=== PATIENT | female | born 1945 | race African-American/Black ===

== ENCOUNTER 2018-05-25 02:11 | Emergency (ER) | payer MEDICARE ==
[~2018-05-25] VITALS: Ht 172.7 cm; Wt 89.3 kg
[~2018-05-25 02:11] MED LIST: CEPH-264 PO; LABE200T4 PO; LISI-334 PO; LOSA50TA2 PO; METF500T9 PO; METO25TA4 PO; labetalol; lisinopril; metformin
[2018-05-25] MEDS ORDERED: LIDO:MAALOX 1:1 20 ML SINGLE DOSE. PO ONE (02:45)
--- NOTE | 2018-05-25 02:49 | PHYS DOC ---
Past History Past Medical History: Diabetes, Hypertension Past Surgical History: No Surgical History Smoking: Greater than 1 pack/day Alcohol Use: None Drug Use: None Adult General Chief Complaint Chief Complaint: GI PROBLEM HPI HPI 72-year-old female presents with feeling of something in her throat. Patient states that she feels like there might be something caught in her throat. She also states that if she could belch it might get better. This feeling started a few hours ago. She does not remember swallowing anything unusual. She states that she is able to eat and drink, but it feels like it gets caught on the way down. She does not have a recent history of GERD. She had this feeling once before several years ago and does not remember why it resolved. Her previous episode involved a lot of pain and this is not painful today. She denies fever or chills. Review of Systems Review of Systems Constitutional: Denies fever or chills [] Eyes: Denies change in visual acuity, redness, or eye pain [] HENT: Denies nasal congestion or sore throat [] Respiratory: Denies cough or shortness of breath [] Cardiovascular: No additional information not addressed in HPI [] GI: Globus sensation in her throat[] : Denies dysuria or hematuria [] Musculoskeletal: Denies back pain or joint pain [] Integument: Denies rash or skin lesions [] Neurologic: Denies headache, focal weakness or sensory changes [] Endocrine: Denies polyuria or polydipsia [] All other systems were reviewed and found to be within normal limits, except as documented in this note. Allergies Allergies Allergies Coded Allergies Type Severity Reaction Last Updated Verified No Known Drug Allergies 01/20/16 No Physical Exam Physical Exam Constitutional: Well developed, well nourished, no acute distress, non-toxic appearance. [] HENT: Normocephalic, atraumatic, bilateral external ears normal, oropharynx moist, no oral exudates, nose normal. [] Eyes: PERRLA, EOMI, conjunctiva normal, no discharge. [] Neck: Normal range of motion, no tenderness, supple, no stridor. [] Cardiovascular:Heart rate regular rhythm, no murmur [] Lungs & Thorax: Decreased breath sounds bilaterally[] Abdomen: Bowel sounds normal, soft, no tenderness, no masses, no pulsatile masses. [] Skin: Warm, dry, no erythema, no rash. [] Back: No tenderness, no CVA tenderness. [] Extremities: No tenderness, no cyanosis, no clubbing, ROM intact, no edema. [] Neurologic: Alert and oriented X 3, normal motor function, normal sensory function, no focal deficits noted. [] Psychologic: Affect normal, judgement normal, mood normal. [] EKG EKG [] Radiology/Procedures Radiology/Procedures [] Impressions: Pulmonary: No obvious foreign body in esophagus. There is a round radiopaque area and the anterior neck. This appears to be a calcification anterior to the trachea. I do not have access to previous imaging for comparison. Course & Med Decision Making Course & Med Decision Making Pertinent Labs and Imaging studies reviewed. (See chart for details) The patient's x-ray did show a round partially radiopaque area in the anterior neck. This appears to be soft tissue anterior to the trachea. This is likely a calcification. I have requested radiology over read, but they have not read the x-ray for over an hour. The patient is feeling better at this time after the GI cocktail. She feels like she is ready to go home. If the radiologist determines her films are concerning, we will inform the patient at that time. She is stable for discharge. [] Dragon Disclaimer Dragon Disclaimer This electronic medical record was generated, in whole or in part, using a voice recognition dictation system. Departure Departure: Referrals: KATARZYNA COX (PCP) SALVADOR GALARZA DO May 25, 2018 02:49
[2018-05-25] MEDS ORDERED: LIDO:MAALOX 1:1 20 ML SINGLE DOSE. ONE (03:01)
--- NOTE | 2018-05-25 04:04 | RAD ---
Soft tissue neck 3 views: Reason for examination: Feels like something is stuck in throat. Evaluate for food bolus. The vertebral bodies of the cervical spine are normally aligned anteriorly and posteriorly. No acute fracture or subluxation is seen. There are some degenerative changes at the C5-6 disc level with moderate narrowing at the disc space. Remaining intervertebral discs are fairly well-maintained. No abnormality seen at the epiglottis. The airway is patent with no stenosis. No radiopaque foreign bodies identified. IMPRESSION: Degenerative changes in the spine at the C5-6 disc level. No radiopaque foreign body identified. Electronically signed by: Carmen Gray MD (05/25/2018 4:00 AM) [facility]
[2018-05-25 04:05] VITALS: BP 151/79
== END 2018-05-25 04:08 | disposition home or self-care (01) ==
LOC: ER 02:11
DX: M47.892 Other spondylosis, cervical region (principal); E11.9 Type 2 diabetes mellitus without complications; I10 Essential (primary) hypertension; K21.9 Gastro-esophageal reflux disease without esophagitis; F17.200 Nicotine dependence, unspecified, uncomplicated
CPT/HCPCS: 70360; 99284

== ENCOUNTER 2019-11-23 19:33 | Emergency (ER) | payer MEDICARE, BC ==
[~2019-11-23] VITALS: Ht 172.7 cm; Wt 89.3 kg
[~2019-11-23 19:33] MED LIST changes: -LOSA50TA2 PO; +LOSA50TA86 PO; +METF500T11 PO; -METF500T9 PO
--- NOTE | 2019-11-23 23:14 | RAD ---
Study: ANKLE LEFT 3V Indication: Injury. Comparison: None. Findings: Cortical irregularity at the tip of the lateral malleolus only seen on the AP view is concerning for a nondisplaced fracture especially given the presence of lateral ankle swelling and a probable ankle joint effusion. The ankle mortise is symmetric. No acute fracture of the partially evaluated foot. Impression: Probable nondisplaced Foreman type A distal fibula fracture without ankle malalignment. Electronically signed by: MADINA DAWKINS MD (11/23/2019 11:12 PM) [facility]
--- NOTE | 2019-11-24 06:25 | PHYS DOC ---
Past History Past Medical History: Asthma, Diabetes, Hypertension, Stroke Past Surgical History: Hysterectomy Smoking: Greater than 1 pack/day Alcohol Use: None Drug Use: None Adult General Chief Complaint Chief Complaint: ANKLE PROBLEM HPI HPI Patient is a 74-year-old -[place] female who presents with persistent left lateral ankle pain times several hours after twisting foot in a pot hole earlier this evening. She reports hearing cracking sensation at the time of injury. Reports persistent pain with tenderness to palpation. No Other acute symptoms or complaints [] Review of Systems Review of Systems Review symptoms as per history of present illness All other systems were reviewed and found to be within normal limits, except as documented in this note. Allergies Allergies Allergies Coded Allergies Type Severity Reaction Last Updated Verified No Known Drug Allergies 01/20/16 No Physical Exam Physical Exam Constitutional: Well developed, well nourished, no acute distress, non-toxic appearance. [] HENT: Normocephalic, atraumatic, bilateral external ears normal, oropharynx moist, no oral exudates, nose normal. [] Extremities: Lateral malleolar tenderness, swelling, no deformities appreciated.. [] Neurologic: Alert and oriented X 3, normal motor function, normal sensory function, no focal deficits noted. [] Psychologic: Affect normal, judgement normal, mood normal. [] Current Patient Data Vital Signs Vital Signs Date Time Temp Pulse Resp B/P (MAP) Pulse Ox O2 Delivery O2 Flow Rate FiO2 11/23/19 20:40 97.4 75 18 97 Room Air EKG EKG [] Radiology/Procedures Radiology/Procedures [Left ankle x-ray, lateral malleolar fracture] Course & Med Decision Making Course & Med Decision Making Pertinent Labs and Imaging studies reviewed. (See chart for details) [Patient splinted and given crutches. Orthopedic follow-up recommended] Dragon Disclaimer Dragon Disclaimer This electronic medical record was generated, in whole or in part, using a voice recognition dictation system. Departure Departure: Impression: Primary Impression: Ankle fracture, left Disposition: 01 HOME, SELF-CARE Condition: STABLE Referrals: ELLIS VASQUEZ MD Patient Instructions: Ankle Fracture, [id number] Additional Instructions: Please wear splint, use crutches and an avoid direct weightbearing. Take ibuprofen or Tylenol for pain and follow-up with local orthopedic physician in the next 3-5 days for further treatment. SALVADOR HUSSEIN DO Nov 24, 2019 06:25
== END 2019-11-23 22:20 | disposition home or self-care (01) ==
LOC: ER 19:33
DX: S82.892A Other fracture of left lower leg, initial encounter for closed fracture (principal); J45.909 Unspecified asthma, uncomplicated; E11.9 Type 2 diabetes mellitus without complications; I10 Essential (primary) hypertension; Z86.73 Personal history of transient ischemic attack (TIA), and cerebral infarction without residual deficits; F17.200 Nicotine dependence, unspecified, uncomplicated; X50.1XXA Overexertion from prolonged static or awkward postures, initial encounter; Y93.89 Activity, other specified; Y92.89 Other specified places as the place of occurrence of the external cause; Y99.8 Other external cause status
CPT/HCPCS: 29515; 73610; 99284

== ENCOUNTER → 2020-02-03 | Outpatient (CLI) | payer MEDICARE, BC ==
[2019-11-23 20:40] VITALS: BP 170/80
--- NOTE | 2020-02-04 08:47 | RAD ---
Two view bilateral hand radiographs 02/03/2020 Clinical history: Bilateral hand pain. PA and lateral digital radiographs of both hands were obtained. A healed fracture of the distal right radial metaphysis is noted. There is diffuse osteopenia of the visualized bony structures. No acute fracture or dislocation of either wrist is seen. Degenerative changes are seen scattered throughout the interphalangeal joints of both hands. These consist of joint compartment narrowing, subchondral sclerosis and associated osteophyte formation. Mild to moderate degenerative changes are seen involving the first MCP joints bilaterally. No erosion or subluxation is seen. IMPRESSION: Degenerative changes are seen involving both hands as discussed above. No acute osseous abnormality is seen. Electronically signed by: Jenaro Mauricio MD (02/04/2020 8:44 AM) [facility] [place]
== END | disposition home or self-care (01) ==
LOC: PMG 15:08
PROVIDERS: ATTEND Physician Assistant
DX: M19.042 Primary osteoarthritis, left hand (principal); M19.041 Primary osteoarthritis, right hand; M85.88 Other specified disorders of bone density and structure, other site
CPT/HCPCS: 73120

== ENCOUNTER → 2020-09-09 | Outpatient (CLI) | payer MEDICARE, BC ==
[2019-11-23 20:40] VITALS: BP 170/80
[~2020-09-09] MED LIST changes: +METF-658 PO; -METF500T11 PO
--- NOTE | 2020-09-09 12:20 | RAD ---
3 views left elbow without comparison for elbow pain. FINDINGS: There is no fracture, dislocation, or acute osseous abnormality identified. No significant degenerative changes are seen. There is soft tissue swelling over the olecranon which may reflect olecranon bursitis and/or edema. IMPRESSION: 1. No acute osseous abnormality. 2. Soft tissue swelling over the olecranon, likely due to olecranon bursitis and/or localized subcutaneous edema. Electronically signed by: Boo Coleman MD (09/09/2020 12:17 PM) [id number]
== END ==
LOC: DXRAD 10:13
PROVIDERS: ATTEND Physician Assistant
DX: M25.412 Effusion, left shoulder (principal); M25.522 Pain in left elbow
CPT/HCPCS: 73080

== ENCOUNTER → 2020-11-16 | Outpatient (CLI) | payer MEDICARE, BC ==
[2019-11-23 20:40] VITALS: BP 170/80
--- NOTE | 2020-11-17 00:59 | RAD ---
Three-view left shoulder dated 11/16/2020. No comparison available. Clinical data indication: Pain. FINDINGS: 3 views left shoulder show normal bony alignment. No displaced fracture. No acute osseous or articula r abnormality. Mild hypertrophic change of the AC joint. No periostitis or bone destruction. IMPRESSION: No acute radiographic abnormality. Electronically signed by: Konstantin Wei MD (11/17/2020 12:57 AM) [facility]
== END ==
LOC: PMG 15:30
PROVIDERS: ATTEND Physician Assistant
DX: M19.012 Primary osteoarthritis, left shoulder (principal)
CPT/HCPCS: 73030

== ENCOUNTER 2021-11-20 04:09 | Emergency (ER) | payer MEDICARE, BC ==
[~2021-11-20] VITALS: Ht 172.7 cm; Wt 90.9 kg
[~2021-11-20 04:09] MED LIST changes: -LISI-334 PO; +LISI20TA18 PO
--- NOTE | 2021-11-20 04:21 | PHYS DOC ---
Past History Past Medical History: Anxiety, Arthritis, Asthma, Bronchitis, CAD, CHF, CVA, Diabetes, Hypertension, Stroke (JAZMÍN ESCOBAR MD) Past Surgical History: Hysterectomy (JAZMÍN ESCOBAR MD) Smoking: Greater than 1 pack/day Alcohol Use: None Drug Use: None (JAZMÍN ESCOBAR MD) General Adult EDM: Chief Complaint: DYSPNEA/RESPIRATOY DISTRESS HPI: HPI: ".. I ve been short of breath... "." Some chest discomfort this morning.. ".. " I should n't have the COVID.. I got my shots.. but I much more short of breath.. today..".. " It amy started on .. " Patient is a 76 year old female who presents with above history and complaints of increased dyspnea, chest discomfort since . Patient does states she did not take her blood pressure meds on or the last 24 hours. Patient does smoke and vape. Patient does have a history of diabetes and TIAs and CVAs., COPD, GERD, patient states her last stroke was in . Patient currently follows with Dr. Del Rio, and and [facility] for care. Patient states she has never had a myocardial infarction. No history of recent travel. No specific ill contacts. No history of trauma. No change in her meds., But was noncompliant over holiday. Patient has past surgical history of total hysterectomy, and oophorectomy, left breast lumpectomy and colonoscopy evaluations. (JAZMÍN ESCOBAR MD) Review of Systems: Review of Systems: Constitutional: Denies fever or chills Eyes: Denies change in visual acuity HENT: Denies nasal congestion or sore throat Respiratory: Complaints of shortness of breath Cardiovascular: Complains of chest discomfort GI: Denies abdominal pain, nausea, vomiting, bloody stools or diarrhea : Denies dysuria Musculoskeletal: Denies back pain or joint pain Integument: Denies rash Neurologic: Denies headache, focal weakness or sensory changes Endocrine: Denies polyuria or polydipsia Lymphatic: Denies swollen glands Psychiatric: Denies depression or anxiety (JAZMÍN ESCOBAR MD) Family History: Family History: Noncontributory to presentation (JAZMÍN ESCOBAR MD) Current Medications: Current Meds: See nursing for home meds (JAZMÍN ESCOBAR MD) Allergies: Allergies: Allergies Coded Allergies Type Severity Reaction Last Updated Verified No Known Drug Allergies 01/20/16 No (JAZMÍN ESCOBAR MD) Physical Exam: PE: Constitutional: Moderate acute distress, non-toxic appearance. [] HENT: Normocephalic, atraumatic, bilateral external ears normal, oropharynx moist, no oral exudates, nose normal. [] Eyes: PERRLA, EOMI, conjunctiva normal, no discharge. [] Neck: Normal range of motion, no tenderness, supple, no stridor. [] JVD in the sitting position Cardiovascular: Tachycardia heart rate regular rhythm, PMI to the left. Bedside monitor shows a interventricular block.. Lungs & Thorax: Bilateral breath sounds equal apex with scattered wheezes and basilar crackles on auscultation [] Abdomen: Bowel sounds decreased, soft, no tenderness, no masses, no pulsatile masses. Old surgery scar. Skin: Warm, diaphoretic, no erythema, no rash. [] Back: No tenderness, no CVA tenderness. [] Extremities: No tenderness, no cyanosis, no clubbing, ROM intact, bilateral ankle edema. [] Neurologic: Alert and oriented X 3, n moves all extremities on request, does have distal sensory, no focal deficits noted. [] Psychologic: Affect anxious , judgement normal, mood normal. [] (JAZMÍN ESCOBAR MD) EKG: EKG: My interpretation EKG shows a sinus rhythm at 90 bpm. Does have an interventricular block and ST elevations in the V leads I through 5. Strain pattern anterior septal region. Abnormal EKG. Time of this EKG is 451 hours . This EKG was sent to Dr. Luke for his review [phone] [] (JAZMÍN ESCOBAR MD) Radiology/Procedures: Radiology/Procedures: [][address] [address] IMAGING REPORT Signed PATIENT: CYNDI WHITE MACCOUNT: [id number] : 1945 LOCATION: ER AGE: 76 SEX: F EXAM STATUS: REG ER ORD. PHYSICIAN: JAZMÍN ESCOBAR MD REASON: dyspnea PROCEDURE: PORTABLE CHEST 1V AP chest x-ray HISTORY: Dyspnea. FINDINGS: There is moderate cardiomegaly. Aortic arch calcified plaque. Pulmonary vascular prominence likely represents vascular congestion. Pulmonary interstitial infiltrates likely edema. No pneumothorax. No pleural effusions evident. IMPRESSION: Congestive heart failure with cardiomegaly, pulmonary vascular congestion and pulmonary interstitial edema. Electronically signed by: Danielle Alvarado MD (11/20/2021 5:11 AM) [facility] [place] DICTATED AND SIGNED BY: DANIELLE ALVARADO MD DATE: 11/20/21509 CC: JAZMÍN ESCOBAR MD; KATARZYNA COX ~MTH0 0 (JAZMÍN ESCOBAR MD) Heart Score: C/O Chest Pain: Yes HEART Score for Chest Pain: HEART Score for Chest Pain Response (Comments) Value History Highly Suspicious [address] Depression 2 Age > 65 2 Risk Factors >3 Risk Factors or Hx CAD 2 Troponin >3 x Normal Limit 2 Total 10 Risk Factors: Risk Factors: DM, Current or recent (<one month) smoker, HTN, HLP, family history of CAD, obesity. Risk Scores: Score 0 - 3: 2.5% MACE over next 6 weeks - Discharge Home Score 4 - 6: 20.3% MACE over next 6 weeks - Admit for Clinical Observation Score 7 - 10: 72.7% MACE over next 6 weeks - Early Invasive Strategies (JAZMÍN ESCOBAR MD) Course & Med Decision Making: Course & Med Decision Making Pertinent Labs and Imaging studies reviewed. (See chart for details) Discussed presentation, testing and tx. Plan with Dr. Luke- advised does not appear to be acute STEMI continue serial enzymes and EKGs. Discussed presentation, testing and treatment plan with Dr. Severo Navarrete-advised he would be happy to admit patient however no beds in the hospital.- Nursing Shortage. Recommended ED hold or transfer and obtaining cardiology consult in ED. Impression: 1. Chest Pain 2. + Trop. at 50 3. Accelerated HTN ( Did not take BPmeds in last 24 hrs.) 4. Elevated D-dimer 2.06 5. DM -156 glucose 6. Vapes 7. Hx. CVA 1980's 8. CHF-diastolic dysfunction BNP 6,701 9. Elevated CK= 239 Critical Care- 60 mins. Multiple calls, meds and orders-for acute IL [Pt. endorsed to Dr. Young at shift change. (JAZMÍN ESCOBAR MD) Course & Med Decision Making I assumed care of patient after comprehensive signout from off going physician. Patient already accepted for admission under the care of Dr. Navarrete at [facility] Unremarkable ER visit during my shift. Patient was actually seen and rounded on by Dr. Luke, attending stone rougher who ultimately recommended hospital transfer to [facility] for nonemergent heart cath to be formed tomorrow I contacted hospitalist, Dr. Anthony at [facility] and reviewed discussion and recommendations from Dr. Luke, patient accepted under the care of Dr. Anthony Patient updated on need for hospital transfer and agreed to plan of care as stated. Remained asymptomatic and hemodynamically stable. All questions and concerns addressed at time of shift change (SABRINA YOUNG DO) Dragon Disclaimer: Dragumair Disclaimer: This electronic medical record was generated, in whole or in part, using a voice recognition dictation system. (JAZMÍN ESCOBAR MD) Departure Departure: Impression: Primary Impression: Chest pain Disposition: 02 [facility]ORT TERM [facility] (general acute hospital) Admitting Physician: Other (dr anthony) (SABRINA YOUNG DO) Condition: STABLE Referrals: KATARZYNA COX (PCP) Dragon Disclaimer This chart was dictated in whole or in part using Voice Recognition software in a busy, high-work load, and often noisy Emergency Department environment. It may contain unintended and wholly unrecognized errors or omissions. (JAZMÍN ESCOBAR MD) JAZMÍN ESCOBAR MD Nov 20, 2021 04:21 SABRINA YOUNG DO Nov 20, 2021 12:48
[2021-11-20] MEDS ORDERED: IV RINGERS SOLUTION,LACTATED 1,000 ML IV SCH (04:30)
[2021-11-20] MEDS ORDERED: ASPIRIN CHEWABLE 81 MG TABLET. PO ONE (04:30)
--- NOTE | 2021-11-20 05:14 | RAD ---
AP chest x-ray HISTORY: Dyspnea. FINDINGS: There is moderate cardiomegaly. Aortic arch calcified plaque. Pulmonary vascular prominence likely represents vascular congestion. Pulmonary interstitial infiltrates likely edema. No pneumotho rax. No pleural effusions evident. IMPRESSION: Congestive heart failure with cardiomegaly, pulmonary vascular congestion and pulmonary i nterstitial edema. Electronically signed by: Feliz Alvarado MD (11/20/2021 5:11 AM) [facility]
[2021-11-20 05:15] LABS: BASO # 0.1 x10^3/uL (0.0-0.2); BASO % 1 % (0-3); EOS # 0.1 x10^3/uL (0.0-0.7); EOS % 2 % (0-3); HEMATOCRIT 38.2 % (36.0-47.0); HEMOGLOBIN 12.5 g/dL (12.0-15.5); LYMPH # 1.1 x10^3/uL (1.0-4.8); LYMPH % 23 % (24-48); MEAN CORPUSCULAR HEMOGLOBIN 31 pg (25-35); MEAN CORPUSCULAR HGB CONC 33 g/dL (31-37); MEAN CORPUSCULAR VOLUME 93 fL (79-100); MONO # 0.4 x10^3/uL (0.0-1.1); MONO % 8 % (0-9); NEUT # 3.3 x10^3uL (1.8-7.7); NEUT % 67 % (31-73); PLATELET COUNT 282 x10^3/uL (140-400); RED CELL DISTRIBUTION WIDTH 16.6 % (11.5-14.5); WHITE BLOOD COUNT 4.9 x10^3/uL (4.0-11.0)
[2021-11-20 05:23] LABS: BACTERIA,URINE FEW /HPF (0-FEW); BILIRUBIN,URINE SMALL (NEG); CLARITY,URINE HAZY; COLOR,URINE YELLOW; GLUCOSE,URINE NEG (NEG); NITRITE,URINE NEG (NEG); RBC,URINE 0 /HPF (0-2); SQUAMOUS EPITHELIAL CELL,UR MOD /LPF
[2021-11-20 05:29] LABS: BARBITURATES NEG (NEG); BENZODIAZEPINES NEG (NEG); CANNABINOIDS NEG (NEG); COCAINE NEG (NEG); METHADONE NEG (NEG); OPIATES NEG (NEG); PHENCYCLIDINE NEG (NEG)
[2021-11-20 05:30] LABS: AMPHETAMINE/METHAMPHETAMINE NEG (NEG)
[2021-11-20 05:35] LABS: CALCIUM 8.8 mg/dL (8.5-10.1); CREATININE 0.8 mg/dL (0.6-1.0); GFR 84.6; POTASSIUM 3.5 mmol/L (3.5-5.1)
[2021-11-20] MEDS ORDERED: NITROGLYCERIN OINT 1 GM PACKET. TP ONE (05:45)
[2021-11-20] MEDS ORDERED: ENOXAPARIN ** NOTE DOSE ** SYRINGE SQ ONE (05:45)
[2021-11-20 05:47] LABS: ALBUMIN 3.6 g/dL (3.4-5.0); DIRECT BILIRUBIN 0.2 mg/dL (0.0-0.2); MAGNESIUM 2.2 mg/dL (1.8-2.4); TOTAL BILIRUBIN 0.7 mg/dL (0.2-1.0); TOTAL PROTEIN 7.3 g/dL (6.4-8.2)
--- NOTE | 2021-11-20 06:39 | EKG ---
[address] [address] Test Date: 2021-11-20 Test Time: 04:51:37 Pat Name: CYNDI WHITE Department: Room: Gender: F Research Associate: : 1945 Requested By: JAZMÍN ESCOBAR Order Number: [id number] Reading MD: Mehran Braun MD Measurements Intervals [place] Rate: 90 P: 38 [place]: 170 QRS: 24 QRSD: 130 T: 126 QT: 418 QTc: 516 Interpretive Statements SINUS RHYTHM LBBB Electronically Signed On 11-21-2021 9:26:25 FIELD ASSEMBLY SUPERVISOR by Mehran Braun MD
--- NOTE | 2021-11-20 06:42 | EKG ---
[address] [address] Test Date: 2021-11-20 Test Time: 05:02:16 Pat Name: CYNDI WHITE Department: Room: Gender: F Pipeline Executive: : 1945 Requested By: JAZMÍN ESCOBAR Order Number: [id number] Reading MD: Mehran Braun MD Measurements Intervals [place] Rate: 95 P: 39 [place]: 154 QRS: 3 QRSD: 78 T: 48 QT: 340 QTc: 430 Interpretive Statements SINUS RHYTHM Electronically Signed On 11-21-2021 9:26:09 GROUND OPERATIONS SUPERINTENDENT by Mehran Braun MD
[2021-11-20 06:58] LABS: INFLUENZA A PATIENT NEGATIVE (NEGATIVE); INFLUENZA B PATIENT NEGATIVE (NEGATIVE)
[2021-11-20] MEDS ORDERED: MORPHINE SULFATE 2 MG/ML DISP.SYRIN. IVP PRN (07:00)
[2021-11-20] MEDS ORDERED: ONDANSETRON PF 4 MG/2 ML VIAL. IVP PRN (07:00)
[2021-11-20] MEDS ORDERED: NITROGLYCERIN OINT 1 GM PACKET. TP SCH (07:00)
[2021-11-20] MEDS ORDERED: ACETAMINOPHEN 325 MG TABLET PO PRN (07:00)
[2021-11-20] MEDS ORDERED: NITROGLYCERIN OINT 1 GM PACKET. TP PRN (07:15)
[2021-11-20] MEDS ORDERED: FUROSEMIDE 40 MG/4 ML VIAL IVP ONE (07:30)
[2021-11-20] MEDS: IPRATRPIUM/ALBUTEROL 0.5/2.5MG 3 ML NEBU. NEB SCH ×4 (08:07→20:40)
[2021-11-20] MEDS: ENOXAPARIN ** NOTE DOSE ** SYRINGE SQ SCH ×2 (09:00→22:06)
[2021-11-20] MEDS ORDERED: ASPIRIN 325 MG TABLET PO SCH (09:00)
--- NOTE | 2021-11-20 14:38 | PDOC2 ---
CONSULT DOS: DATE: 11/20/21 TIME: 14:32 Reason for Consult: Chest pain Referring Physician: Dr. Castillo Chief Complaint Chest pain Source: Chart review, Patient Problem List Problems Medical Problems: (1) Chest pain Status: Acute History of Present Illness 76-year-old female without any previous cardiac history presented complaining of retrosternal chest pressure that she stated was 10/10 severity on presentation and currently at 7/10 severity associated with shortness of breath. She denied any orthopnea/PND, palpitations or syncope. Past Medical History Hypertension Diabetes mellitus type 2 TIA/CVA COPD Past Surgical History: Hysterectomy Family History Hypertension Social History Patient quit smoking few years ago and denied any alcohol or drug abuse Current Medications Current Medications Aspirin (Aspirin Chewable) 324 mg 1X ONCE PO Last administered on 11/20/21at 05:04; Start 11/20/21 at 04:30; Stop 11/20/21 at 04:33; Status DC Lactated Ringer's 1,000 ml @ 100 mls/hr Q10H IV Last administered on 11/20/21at 05:23; Start 11/20/21 at 04:30; Stop 11/20/21 at 14:29; Status DC Nitroglycerin (Nitro-Bid Oint) 1 inch 1X ONCE TP Last administered on 1 01/21/21at 06:22; Start 11/20/21 at 05:45; Stop 11/20/21 at 05:47; Status DC Enoxaparin Sodium (Lovenox 100mg Syringe) 100 mg 1X ONCE SQ Last administered on 11/20/21at 06:23; Start 11/20/21 at 05:45; Stop 11/20/21 at 05:47; Status DC Ondansetron HCl (Zofran) 4 mg PRN Q4HRS PRN IVP NAUSEA/VOMITING; Start 11/20/21 at 07:00; Stop 11/21/21 at 06:59 Morphine Sulfate (Morphine 2mg Syringe) 2 mg PRN Q2HR PRN IVP PAIN; Start 11/20/21 at 07:00; Stop 11/21/21 at 06:59 Acetaminophen (Tylenol) 650 mg PRN Q4HRS PRN PO FEVER > 100.3'F; Start 11/20/21 at 07:00; Stop 11/21/21 at 06:59 Albuterol/ Ipratropium (Duoneb) 3 ml RTQID NEB Last administered on 11/20/21at 12:03; Start 11/20/21 at 08:00; Stop 11/21/21 at 07:59 Nitroglycerin (Nitro-Bid Oint) 1 inch TID PRN TP ; Start 11/20/21 at 07:00; Stop 11/20/21 at 07:06; Status DC Aspirin (Arsh Aspirin) 81 mg DAILY PO ; Start 11/20/21 at 09:00 Enoxaparin Sodium (Lovenox 100mg Syringe) 90 mg BID SQ ; Start 11/20/21 at 09:00 Nitroglycerin (Nitro-Bid Oint) 1 inch TID PRN PRN TP CHEST PAIN; Start 11/20/21 at 07:15 Furosemide (Lasix) 40 mg 1X ONCE IVP Last administered on 11/20/21at 08:07; Start 11/20/21 at 07:30; Stop 11/20/21 at 07:38; Status DC Active Scripts Active Keflex (Cephalexin) 500 Mg Capsule 1 Cap PO TID Metoprolol Tartrate 25 Mg Tablet 25 Mg PO BID Cozaar (Losartan Potassium) 50 Mg Tablet 50 Mg PO DAILY Reported Metformin Hcl Er (Metformin Hcl) 500 Mg Tab.er.24h 1 Tab PO DAILY Allergies: Coded Allergies: No Known Drug Allergies (Unverified , 01/20/16) PSYCHOLOGICAL ROS: No: Hallucinations Eyes: No: Loss of vision HEENT: No: Epistaxis Respiratory: YES: Shortness of breath; No: Hemoptysis Cardiovascular: yes: Chest Pain Gastrointestinal: No: Vomiting, Diarrhea Neurological: No: Seizures Skin: No: Rash General: Alert, Oriented X3 HEENT: Atraumatic Lungs: Clear to auscultation Heart: Regular rate Abdomen: Soft Extremities: No edema Psych/Mental Status: Mood NL VITALS Vital Signs Date Time Temp Pulse Resp B/P (MAP) Pulse Ox O2 Delivery O2 Flow Rate FiO2 11/20/21 12:03 94 Room Air 11/20/21 06:22 90 183/111 11/20/21 06:20 23 11/20/21 04:10 98.0 Labs Laboratory Tests Test 11/20/21 04:20 11/20/21 04:45 11/20/21 05:20 12/26/21 07:59 Urine Collection Type Unknown Urine Color Yellow Urine Clarity Hazy Urine pH 5.5 Urine Specific [place] 1.025 Urine Protein Neg (NEG-TRACE) Urine Glucose (UA) Neg mg/dL (NEG) Urine Ketones (Stick) Neg mg/dL (NEG) Urine Blood Trace (NEG) Urine Nitrite Neg (NEG) Urine Bilirubin Small (NEG) Urine Urobilinogen Dipstick 1.0 mg/dL (0.2 mg/dL) Urine Leukocyte Esterase Neg (NEG) Urine RBC 0 /HPF (0-2) Urine WBC 1-4 /HPF (0-4) Urine Squamous Epithelial Cells Mod /LPF Urine Bacteria Few /HPF (0-FEW) Urine Opiates Screen Neg (NEG) Urine Methadone Screen Neg (NEG) Urine Barbiturates Neg (NEG) Urine Phencyclidine Screen Neg (NEG) Urine Amphetamine/Methamphetamine Neg (NEG) Urine Benzodiazepines Screen Neg (NEG) Urine Cocaine Screen Neg (NEG) Urine Cannabinoids Screen Neg (NEG) Urine Ethyl Alcohol Neg (NEG) White Blood Count 4.9 x10^3/uL (4.0-11.0) Red Blood Count 4.10 x10^6/uL (3.50-5.40) Hemoglobin 12.5 g/dL (12.0-15.5) Hematocrit 38.2 % (36.0-47.0) Mean Corpuscular Volume 93 fL (79-100) Mean Corpuscular Hemoglobin 31 pg (25-35) Mean Corpuscular Hemoglobin Concent 33 g/dL (31-37) Red Cell Distribution Width 16.6 % (11.5-14.5) Platelet Count 282 x10^3/uL (140-400) Neutrophils (%) (Auto) 67 % (31-73) Lymphocytes (%) (Auto) 23 % (24-48) Monocytes (%) (Auto) 8 % (0-9) Eosinophils (%) (Auto) 2 % (0-3) Basophils (%) (Auto) 1 % (0-3) Neutrophils # (Auto) 3.3 x10^3uL (1.8-7.7) Lymphocytes # (Auto) 1.1 x10^3/uL (1.0-4.8) Monocytes # (Auto) 0.4 x10^3/uL (0.0-1.1) Eosinophils # (Auto) 0.1 x10^3/uL (0.0-0.7) Basophils # (Auto) 0.1 x10^3/uL (0.0-0.2) Prothrombin Time 10.7 SEC (9.4-11.4) Prothromb Time International Ratio 1.0 (0.9-1.1) Activated Partial Thromboplast Time 26 SEC (23-33) D-Dimer (Elana) 2.06 mg/L (0.00-0.50) Sodium Level 143 mmol/L (136-145) Potassium Level 3.5 mmol/L (3.5-5.1) Chloride Level 109 mmol/L (98-107) Carbon Dioxide Level 23 mmol/L (21-32) Anion Gap 11 (6-14) Blood Urea Nitrogen 14 mg/dL (7-20) Creatinine 0.8 mg/dL (0.6-1.0) Estimated GFR (Cockcroft-Gault) 84.6 Glucose Level 156 mg/dL (70-99) Calcium Level 8.8 mg/dL (8.5-10.1) Magnesium Level 2.2 mg/dL (1.8-2.4) Total Bilirubin 0.7 mg/dL (0.2-1.0) Direct Bilirubin 0.2 mg/dL (0.0-0.2) Aspartate Amino Transf (AST/SGOT) 20 U/L (15-37) Alanine Aminotransferase (ALT/SGPT) 23 U/L (14-59) Alkaline Phosphatase 85 U/L (46-116) Creatine Kinase 239 U/L (26-192) Troponin I High Sensitivity 50 ng/L (4-50) 53 ng/L (4-50) BN-Bdz-G-Type Natriuretic Peptide 6701 pg/mL (0-449) Total Protein 7.3 g/dL (6.4-8.2) Albumin 3.6 g/dL (3.4-5.0) Lipase 31 U/L (73-393) Thyroid Stimulating Hormone (TSH) 1.313 uIU/mL (0.358-3.740) Influenza Type A (Rapid) Negative (NEGATIVE) Influenza Type B (Rapid) Negative (NEGATIVE) SARS-CoV-2 Antigen (Rapid) Negative (NEGATIVE) Test 11/20/21 11:35 Troponin I High Sensitivity 63 ng/L (4-50) Assessment/Plan 1. Chest pain with slightly elevated troponin level consistent with non-STEMI. EKG showed sinus rhythm with intraventricular conduction delay. Continue Lovenox and transfer to [facility] for cardiac catheterization and possible angioplasty tomorrow. Risks and benefits were explained and she is agreeable. 2. Congestive heart failure, most probably acute on chronic diastolic. Symptoms improved with diuresis with Lasix. Check 2D echo to assess LV systolic function. 3. Accelerated hypertension: Resume home antihypertensives and titrate for better control. 4. Diabetes mellitus type 2: Treat per IM 5. h/o TIA/CVA Thank you for your consultation TERENCE GARSIA MD Nov 20, 2021 14:38
[2021-11-21] MEDS: IPRATRPIUM/ALBUTEROL 0.5/2.5MG 3 ML NEBU. NEB SCH (05:35)
[2021-11-21] MEDS ORDERED: INDO50CA15 PO (07:32)
[2021-11-21] MEDS ORDERED: ALLO300T PO (07:32)
[2021-11-21] MEDS ORDERED: LABE200T4 PO (07:32)
[2021-11-21] MEDS ORDERED: LISI40TA6 PO (07:32)
[2021-11-21] MEDS ORDERED: ATOR10TA60 PO (07:32)
[2021-11-21] MEDS ORDERED: ASPI81TA59 PO (07:32)
[2021-11-21] MEDS ORDERED: INDOMETHACIN 25 MG CAPSULE PO PRN (07:45)
[2021-11-21 08:16] LABS: CALCIUM 8.7 mg/dL (8.5-10.1); CREATININE 0.8 mg/dL (0.6-1.0); GFR 84.6; POTASSIUM 3.3 mmol/L (3.5-5.1)
[2021-11-21 08:18] LABS: BASO % 1 % (0-3); EOS # 0.1 x10^3/uL (0.0-0.7); EOS % 2 % (0-3); HEMATOCRIT 37.8 % (36.0-47.0); HEMOGLOBIN 12.3 g/dL (12.0-15.5); LYMPH # 1.5 x10^3/uL (1.0-4.8); LYMPH % 28 % (24-48); MEAN CORPUSCULAR HEMOGLOBIN 30 pg (25-35); MEAN CORPUSCULAR HGB CONC 33 g/dL (31-37); MEAN CORPUSCULAR VOLUME 93 fL (79-100); MONO # 0.4 x10^3/uL (0.0-1.1); MONO % 7 % (0-9); NEUT # 3.3 x10^3uL (1.8-7.7); NEUT % 63 % (31-73); PLATELET COUNT 283 x10^3/uL (140-400); RED BLOOD COUNT 4.07 x10^6/uL (3.50-5.40); RED CELL DISTRIBUTION WIDTH 16.8 % (11.5-14.5); WHITE BLOOD COUNT 5.3 x10^3/uL (4.0-11.0)
--- NOTE | 2021-11-21 08:34 | PDOC ---
MELVIN WILKINS [employer] 11/21/21 0834: CARDIO Progress Notes Date & Time Date of Service DATE: 11/21/21 TIME: 08:32 Time of Evaluation 08:32 Subjective Notes CP improved. Reports mild SOA Vitals Vitals Vital Signs Date Time Temp Pulse Resp B/P (MAP) Pulse Ox O2 Delivery O2 Flow Rate FiO2 11/21/21 06:30 89 24 180/96 (124) 98 Room Air 11/20/21 04:10 98.0 Weight Weight [ ] Laboratory Labs Laboratory Tests Test 11/20/21 04:20 11/20/21 04:45 11/20/21 05:20 11/20/21 07:40 Urine Collection Type Unknown Urine Color Yellow Urine Clarity Hazy Urine pH 5.5 Urine Specific [place] 1.025 Urine Protein Neg (NEG-TRACE) Urine Glucose (UA) Neg mg/dL (NEG) Urine Ketones (Stick) Neg mg/dL (NEG) Urine Blood Trace (NEG) Urine Nitrite Neg (NEG) Urine Bilirubin Small (NEG) Urine Urobilinogen Dipstick 1.0 mg/dL (0.2 mg/dL) Urine Leukocyte Esterase Neg (NEG) Urine RBC 0 /HPF (0-2) Urine WBC 1-4 /HPF (0-4) Urine Squamous Epithelial Cells Mod /LPF Urine Bacteria Few /HPF (0-FEW) Urine Opiates Screen Neg (NEG) Urine Methadone Screen Neg (NEG) Urine Barbiturates Neg (NEG) Urine Phencyclidine Screen Neg (NEG) Urine Amphetamine/Methamphetamine Neg (NEG) Urine Benzodiazepines Screen Neg (NEG) Urine Cocaine Screen Neg (NEG) Urine Cannabinoids Screen Neg (NEG) Urine Ethyl Alcohol Neg (NEG) White Blood Count 4.9 x10^3/uL (4.0-11.0) Red Blood Count 4.10 x10^6/uL (3.50-5.40) Hemoglobin 12.5 g/dL (12.0-15.5) Hematocrit 38.2 % (36.0-47.0) Mean Corpuscular Volume 93 fL (79-100) Mean Corpuscular Hemoglobin 31 pg (25-35) Mean Corpuscular Hemoglobin Concent 33 g/dL (31-37) Red Cell Distribution Width 16.6 % (11.5-14.5) Platelet Count 282 x10^3/uL (140-400) Neutrophils (%) (Auto) 67 % (31-73) Lymphocytes (%) (Auto) 23 % (24-48) Monocytes (%) (Auto) 8 % (0-9) Eosinophils (%) (Auto) 2 % (0-3) Basophils (%) (Auto) 1 % (0-3) Neutrophils # (Auto) 3.3 x10^3uL (1.8-7.7) Lymphocytes # (Auto) 1.1 x10^3/uL (1.0-4.8) Monocytes # (Auto) 0.4 x10^3/uL (0.0-1.1) Eosinophils # (Auto) 0.1 x10^3/uL (0.0-0.7) Basophils # (Auto) 0.1 x10^3/uL (0.0-0.2) Prothrombin Time 10.7 SEC (9.4-11.4) Prothromb Time International Ratio 1.0 (0.9-1.1) Activated Partial Thromboplast Time 26 SEC (23-33) D-Dimer (Elana) 2.06 mg/L (0.00-0.50) Sodium Level 143 mmol/L (136-145) Potassium Level 3.5 mmol/L (3.5-5.1) Chloride Level 109 mmol/L (98-107) Carbon Dioxide Level 23 mmol/L (21-32) Anion Gap 11 (6-14) Blood Urea Nitrogen 14 mg/dL (7-20) Creatinine 0.8 mg/dL (0.6-1.0) Estimated GFR (Cockcroft-Gault) 84.6 Glucose Level 156 mg/dL (70-99) Calcium Level 8.8 mg/dL (8.5-10.1) Magnesium Level 2.2 mg/dL (1.8-2.4) Total Bilirubin 0.7 mg/dL (0.2-1.0) Direct Bilirubin 0.2 mg/dL (0.0-0.2) Aspartate Amino Transf (AST/SGOT) 20 U/L (15-37) Alanine Aminotransferase (ALT/SGPT) 23 U/L (14-59) Alkaline Phosphatase 85 U/L (46-116) Creatine Kinase 239 U/L (26-192) Troponin I High Sensitivity 50 ng/L (4-50) KT-Mox-Q-Type Natriuretic Peptide 6701 pg/mL (0-449) Total Protein 7.3 g/dL (6.4-8.2) Albumin 3.6 g/dL (3.4-5.0) Lipase 31 U/L (73-393) Thyroid Stimulating Hormone (TSH) 1.313 uIU/mL (0.358-3.740) Coronavirus (COVID-19)(PCR) Not detected (NOT DETECTD) Influenza Type A (Rapid) Negative (NEGATIVE) Influenza Type B (Rapid) Negative (NEGATIVE) SARS-CoV-2 Antigen (Rapid) Negative (NEGATIVE) Triglycerides Level 48 mg/dL (0-150) Cholesterol Level 130 mg/dL (0-200) LDL Cholesterol, Calculated 73 mg/dL (0-100) VLDL Cholesterol, Calculated 9 mg/dL (0-40) Non-HDL Cholesterol Calculated 82 mg/dL (0-129) HDL Cholesterol 48 mg/dL (40-60) Cholesterol/HDL Ratio 2.0 Test 11/20/21 07:59 11/20/21 11:35 11/20/21 20:20 11/21/21 07:15 Troponin I High Sensitivity 53 ng/L (4-50) 63 ng/L (4-50) 55 ng/L (4-50) White Blood Count 5.3 x10^3/uL (4.0-11.0) Red Blood Count 4.07 x10^6/uL (3.50-5.40) Hemoglobin 12.3 g/dL (12.0-15.5) Hematocrit 37.8 % (36.0-47.0) Mean Corpuscular Volume 93 fL (79-100) Mean Corpuscular Hemoglobin 30 pg (25-35) Mean Corpuscular Hemoglobin Concent 33 g/dL (31-37) Red Cell Distribution Width 16.8 % (11.5-14.5) Platelet Count 283 x10^3/uL (140-400) Neutrophils (%) (Auto) 63 % (31-73) Lymphocytes (%) (Auto) 28 % (24-48) Monocytes (%) (Auto) 7 % (0-9) Eosinophils (%) (Auto) 2 % (0-3) Basophils (%) (Auto) 1 % (0-3) Neutrophils # (Auto) 3.3 x10^3uL (1.8-7.7) Lymphocytes # (Auto) 1.5 x10^3/uL (1.0-4.8) Monocytes # (Auto) 0.4 x10^3/uL (0.0-1.1) Eosinophils # (Auto) 0.1 x10^3/uL (0.0-0.7) Basophils # (Auto) 0.0 x10^3/uL (0.0-0.2) Sodium Level 141 mmol/L (136-145) Potassium Level 3.3 mmol/L (3.5-5.1) Chloride Level 104 mmol/L (98-107) Carbon Dioxide Level 23 mmol/L (21-32) Anion Gap 14 (6-14) Blood Urea Nitrogen 13 mg/dL (7-20) Creatinine 0.8 mg/dL (0.6-1.0) Estimated GFR (Cockcroft-Gault) 84.6 Glucose Level 126 mg/dL (70-99) Calcium Level 8.7 mg/dL (8.5-10.1) Physical Exams HEENT: Neck Supple W Full Motion Chest: Symmetric Lungs: Other (diminished bases) Heart: RRR Abdomen: Soft N/T Extremities: No Edema Neurology: alert, oriented, follow commands Assessment Assessment 1. Chest pain with slightly elevated troponin level consistent with non-STEMI. EKG showed sinus rhythm with intraventricular conduction delay. Plan for transfer to [facility] for cardiac catheterization and possible angioplasty today. Risks and benefits were explained and she is agreeable. 2. Congestive heart failure, most probably acute on chronic diastolic. Symptoms improved with diuresis with Lasix. Check 2D echo to assess LV systolic function. 3. Accelerated hypertension: Remains elevated 4. Diabetes mellitus type 2: Treat per IM 5. h/o TIA/CVA DAVID FOOTE MD 11/21/21 1651: CARDIO Progress Notes Assessment Assessment Patient seen and examined I agree with our nurse practitioners assessment and plan. Chest pain with slightly elevated troponin level consistent with non-STEMI. EKG showed sinus rhythm with intraventricular conduction delay. Pain-free this morning. Plan to transfer to [place] today for cardiac catheterization. Congestive heart failure, improved with diuresis. Continue present medications. We will check an echocardiogram. Accelerated hypertension: Improved. Will adjust medications as needed. Diabetes mellitus type 2: Treat per IM History of a TIA/CVA MELVIN WILKINS APRN Nov 21, 2021 08:34 DAVID FOOTE MD Nov 21, 2021 16:51
[2021-11-21] MEDS ORDERED: POTASSIUM CHLORIDE 20 MEQ TABLET.ER. PO ONE (08:45)
[2021-11-21 09:00] VITALS: BP 178/110
[2021-11-21] MEDS ORDERED: ATORVASTATIN CALCIUM 10 MG TABLET. PO SCH (09:00)
[2021-11-21] MEDS ORDERED: ASPIRIN CHEWABLE 81 MG TABLET. PO SCH (09:00)
[2021-11-21] MEDS ORDERED: LISINOPRIL 20 MG TABLET PO SCH (09:00)
[2021-11-21] MEDS ORDERED: ALLOPURINOL 300 MG TABLET. PO SCH (09:00)
[2021-11-21] MEDS ORDERED: LABETALOL HCL 200 MG TABLET PO SCH (09:00)
== END 2021-11-21 09:29 | disposition short-term general hospital (02) ==
LOC: ER 04:09
DX: I11.0 Hypertensive heart disease with heart failure (principal); I50.30 Unspecified diastolic (congestive) heart failure; E11.9 Type 2 diabetes mellitus without complications; R79.1 Abnormal coagulation profile; R74.8 Abnormal levels of other serum enzymes; M19.90 Unspecified osteoarthritis, unspecified site; J45.909 Unspecified asthma, uncomplicated; I25.10 Atherosclerotic heart disease of native coronary artery without angina pectoris; K21.9 Gastro-esophageal reflux disease without esophagitis; Z87.891 Personal history of nicotine dependence; Z86.73 Personal history of transient ischemic attack (TIA), and cerebral infarction without residual deficits
CPT/HCPCS: 36415; 71045; 80048; 80061; 80076; 80307; 81001; 82550; 83690; 83735; 83880; 84443; 84484; 85025; 85379; 85610; 85730; 87426; 87804; 93005; 94640; 96361; 96372; 96374; 99285; J1650; J1940; J7120; U0003